=== PATIENT | male | born 1965 | race Two or more races ===

== ENCOUNTER → 2021-01-22 | Day surgery (SDC) | payer OTHER | END | disposition home or self-care (01) | LOC: ADM 01-17 14:30 → AMB-ENDOS 12:36 | PROVIDERS: ATTEND Colon & Rectal Surgery | DX: C20 Malignant neoplasm of rectum (principal); K62.82 Dysplasia of anus ==

== ENCOUNTER 2021-04-07 09:30 | Inpatient (IN) | payer OTHER ==
[~2021-04-07] VITALS: Ht 180.3 cm; Wt 127.0 kg
[2021-04-07] MEDS ORDERED: ZOCOR40 MG PO (15:13)
[2021-04-07] MEDS ORDERED: HYDROCHLOROTHIA25 MG PO (15:13)
[2021-04-07] MEDS ORDERED: GLIMEPIRIDE4 MG (15:13)
[2021-04-07] MEDS ORDERED: LOPRESSOR25 MG PO (15:13)
[2021-04-07] MEDS ORDERED: METFORMIN HCL1000 M2 PO (15:14)
[2021-04-09] MEDS ORDERED: METOPROLOL TAR100 MG (08:57)
[2021-04-09] MEDS ORDERED: CAPECITABINE150 MG (08:57)
[2021-04-09] MEDS ORDERED: JARDIANCE25 MG (08:57)
== END 2021-04-14 12:50 | disposition home or self-care (01) | DRG 330 ==
LOC: O/R 04-09 06:52 → SURH 04-09 08:45
PROVIDERS: ADMIT Colon & Rectal Surgery; ATTEND Colon & Rectal Surgery
PROC: 0DTN4ZZ Resection of Sigmoid Colon, Percutaneous Endoscopic Approach (ICD-10-PCS; 2021-04-09)
PROC: 07BD4ZX Excision of Aortic Lymphatic, Percutaneous Endoscopic Approach, Diagnostic (ICD-10-PCS; 2021-04-09)
PROC: 07BC4ZX Excision of Pelvis Lymphatic, Percutaneous Endoscopic Approach, Diagnostic (ICD-10-PCS; 2021-04-09)
PROC: 3E0F7SF Introduction of Other Gas into Respiratory Tract, Via Natural or Artificial Opening (ICD-10-PCS; 2021-04-09)
PROC: 0DTP4ZZ Resection of Rectum, Percutaneous Endoscopic Approach (ICD-10-PCS; principal; 2021-04-09 08:45)
DX: C20 Malignant neoplasm of rectum (principal); K92.1 Melena; E83.39 Other disorders of phosphorus metabolism

== ENCOUNTER 2021-08-06 07:51 | Outpatient (CLI) | payer OTHER ==
[~2021-08-06 07:51] MED LIST: CAPECITABINE150 MG; GLIMEPIRIDE4 MG; HYDROCHLOROTHIA25 MG PO; JARDIANCE25 MG; LOPRESSOR25 MG PO; METFORMIN HCL1000 M2 PO; METOPROLOL TAR100 MG; ZOCOR40 MG PO
== END 2021-08-06 08:20 | disposition home or self-care (01) ==
LOC: RAD 07:51
PROVIDERS: ATTEND Colon & Rectal Surgery
DX: C20 Malignant neoplasm of rectum (principal)

== ENCOUNTER 2021-09-12 11:00 | Inpatient (IN) | payer OTHER ==
[~2021-09-12] VITALS: Ht 180.3 cm; Wt 140.6 kg
== END 2021-09-24 18:11 | disposition home or self-care (01) | DRG 348 ==
LOC: SURH 09-17 07:00 → O/R 09-17 07:24 → SURH 09-17 11:00 → SURG 09-18 13:27
PROVIDERS: ADMIT Colon & Rectal Surgery; ATTEND Colon & Rectal Surgery
PROC: 0WQF4ZZ Repair Abdominal Wall, Percutaneous Endoscopic Approach (ICD-10-PCS; 2021-09-17)
PROC: 0DBB4ZZ Excision of Ileum, Percutaneous Endoscopic Approach (ICD-10-PCS; principal; 2021-09-17 07:00)
PROC: 30233N1 Transfusion of Nonautologous Red Blood Cells into Peripheral Vein, Percutaneous Approach (ICD-10-PCS; 2021-09-18)
PROC: 4A12X4Z Monitoring of Cardiac Electrical Activity, External Approach (ICD-10-PCS; 2021-09-19)
DX: Z43.2 Encounter for attention to ileostomy (principal); C20 Malignant neoplasm of rectum; D62 Acute posthemorrhagic anemia; K92.1 Melena; K43.2 Incisional hernia without obstruction or gangrene; Z85.048 Personal history of other malignant neoplasm of rectum, rectosigmoid junction, and anus; I10 Essential (primary) hypertension; E11.9 Type 2 diabetes mellitus without complications